=== PATIENT | female | born 1935 | race Caucasian/White ===

== ENCOUNTER 2017-02-08 09:23 | Emergency (ER) | payer MEDICARE | END 2017-02-08 12:06 | disposition home or self-care (01) | LOC: FER 09:23 | DX: L50.0 Allergic urticaria (principal); I50.9 Heart failure, unspecified; E78.00 Pure hypercholesterolemia, unspecified; Z79.899 Other long term (current) drug therapy | CPT/HCPCS: J2930 ==

== ENCOUNTER 2020-10-05 05:15 | Day surgery (SDC) | payer MEDICARE ==
[~2020-10-05 05:15] MED LIST: LASIX40 MG PO; PROLIA60 MG/1 ML IV; SIMVASTATIN20 MG PO
[2020-10-09 05:54] LABS: BILIRUBIN NEGATIVE (NEGATIVE); BLOOD NEGATIVE Ery/uL (NEGATIVE); CLARITY CLEAR (CLEAR); COLOR YELLOW (YELLOW); GLUCOSE (U) NORMAL (NORMAL); LEUKOCYTES NEGATIVE Leu/uL (NEGATIVE); NITRITE NEGATIVE (NEGATIVE); PROTEIN NEGATIVE (NEGATIVE); SPECIFIC GRAVITY 1.015 (1.001-1.030); UROBILINOGEN 0.2 mg/dL (0.2-1.0); pH 5.5 (5.0-9.0)
[2020-10-09 05:58] LABS: SQUAMOUS EPITHELIAL CELLS RARE
[2020-10-09 06:05] LABS: BASOPHIL 0.2 % (0-2); EOSINOPHIL 0.4 % (0-7); HGB 9.3 g/dl (12.5-16.0); LYMPHOCYTE 9.6 % (15-48); MCH 30.6 pg (25.0-31.0); MCHC 32.1 g/dL (32.0-36.0); MCV 95.4 fL (78.0-100.0); MONOCYTE 9.8 % (0-12); MPV 9.2 fL (6.0-9.5); NEUTROPHIL 79.6 % (41-80); NRBC 0; PLT 189 K/uL (150-400); RBC 3.04 M/uL (4.20-5.40); RDW 13.5 % (11.5-14.0); WBC 8.4 K/uL (4.0-10.5)
[2020-10-09 06:31] LABS: BUN/CREAT RATIO (CALC) 16.2 RATIO; CREATININE 0.68 mg/dL (0.51-0.95)
[2020-10-09] MEDS ORDERED: XARELTO10 MG PO (09:45)
--- NOTE | 2020-10-09 10:12 | NUR ---
MET WITH PT. AND DAUGHTER, RAIZA MILES. PT. REQUESTED [facility] FOR PT/OT AND NURSING ASSESSMENT. AFFILATIONS EXPLAINED. PT. IS GETTING A ROLLING WALKER AND 11/05 FROM [facility]. PT. WILL D/C HOME WITH HER SPOUSE.
[2020-10-09] MEDS ORDERED: ELIQUIS2.5 MG PO (12:13)
--- NOTE | 2020-10-09 14:15 | NUR ---
PT LIVES AT HOME WITH SPOUSE; REPORTS INDEPENDENT WITH CARE HAS A CANE AND CPAP/BIPAP AT HOME. [facility]ERGUS[facility] IS ARRANGING FOR HOME HEALTH [facility] PER PT CHOICE
== END 2020-10-09 14:32 | disposition home health service (06) ==
LOC: FAS 05:15 → FMS 10-08 05:15 → FSDC 10-08 05:15 → FMS 10-08 07:00 → EDSTATUS 10-08 08:30 → FMS 10-08 08:30 → FSDC 10-08 08:53 → FMS 10-08 08:53 → FAS 10-09 14:32 → FMS 10-09 14:32
PROVIDERS: Legal Medicine; Nurse Practitioner
DX: M16.11 Unilateral primary osteoarthritis, right hip (principal); M53.3 Sacrococcygeal disorders, not elsewhere classified; E78.5 Hyperlipidemia, unspecified; I50.9 Heart failure, unspecified; G47.30 Sleep apnea, unspecified; M81.0 Age-related osteoporosis without current pathological fracture; E78.00 Pure hypercholesterolemia, unspecified; Z86.010 Personal history of colon polyps; Z86.73 Personal history of transient ischemic attack (TIA), and cerebral infarction without residual deficits; Z79.01 Long term (current) use of anticoagulants; Z79.82 Long term (current) use of aspirin; Z79.899 Other long term (current) drug therapy; Z88.1 Allergy status to other antibiotic agents; Z88.5 Allergy status to narcotic agent; Z88.6 Allergy status to analgesic agent; Z96.651 Presence of right artificial knee joint; Z98.1 Arthrodesis status
CPT/HCPCS: 36415; 71045; 73501; 76000; 80048; 81001; 85025; 86850; 86900; 86901; 87040; 94010; 94760; 94762; 97110; 97116; 97162; 97166; 97530-GP; 97535; C1776; J0171; J1170; J2250; J2405; J2704; J2710; J2795; J3010; J7120

== ENCOUNTER 2021-01-20 09:16 | Emergency (ER) | payer MEDICARE ==
[~2021-01-20 09:16] MED LIST changes: +ELIQUIS2.5 MG PO; +XARELTO10 MG PO
== END 2021-01-20 13:07 | disposition home or self-care (01) ==
LOC: FER 09:16
DX: M79.661 Pain in right lower leg (principal); Z88.1 Allergy status to other antibiotic agents; Z88.6 Allergy status to analgesic agent
CPT/HCPCS: 93971

== ENCOUNTER 2021-12-26 17:36 | Emergency (ER) | payer MEDICARE | END 2021-12-26 20:03 | disposition left against medical advice (07) | LOC: FER 17:36 | DX: R07.9 Chest pain, unspecified (principal); Z53.8 Procedure and treatment not carried out for other reasons | CPT/HCPCS: 93005 ==